=== PATIENT | male | born 1950 | race Caucasian/White ===

== ENCOUNTER → 2019-09-02 13:56 | Outpatient (BNVA) | payer MEDICARE, MEDICAID, SELFPAY | PROVIDERS: Visit Provider Urology | DX: N39.0 Urinary tract infection, site not specified (principal); R31.0 Gross hematuria | CPT/HCPCS: 81001; 84153; 87077; 87086; 87186; 88112 ==

== ENCOUNTER → 2019-09-06 11:51 | Outpatient (BNVA) | payer MEDICARE, MEDICAID, SELFPAY | PROVIDERS: Visit Provider Urology | DX: N39.0 Urinary tract infection, site not specified (principal); K92.1 Melena; R31.0 Gross hematuria | CPT/HCPCS: 88112 ==

== ENCOUNTER 2019-09-07 08:08 | Day surgery (SDC) | payer MEDICARE, MEDICAID, SELFPAY ==
[2019-09-06 08:33] VITALS: BMI 22.3
--- NOTE | 2019-09-07 08:28 | P.ANESASSM_ITS ---
Pre-Anesthetic Assessment Pre-Anesthetic Assessment: Height/Weight: Height 1.8 m Weight 72.575 kg Preop Diagnosis: Blood in the Stool Proposed Procedure: Operation Date: 09/07/19 08:30 Proposed Procedures p Colonoscopy 49599 K92.1(Not Applicable) - Shabbir Viveros MD Last Intake: 21:00 Social: Social History: Tobacco Packs per day: 1/4 Pack years: 12 Comment: quit 10 years ago Exam: Pre-Anes Outpt Exam: alert, oriented x 3, clear to auscultation bilaterally and regular rate & rhythm Airway: Submandibular: WNL Cervical ROM: WNL MP: 1 Additional comments: very poor : : UTI Comments: hx hematuria GI: Comments: blood in stool Anesthetic Plan: ASA status: II Anesthesia: MAC PFSH Anesthesia PFSH: Social History Smoking and tobacco status: former smoker Quit status (tobacco): has quit using tobacco Year quit tobacco: 10 years ago Second hand smoke exposure: No Alcohol intake: never Desire information about substance/drug rehabilitation?: No Adopted: No Caregiver/support person: Yes Lives independently: Yes Household members: family Housing: House Marital status: Single Highest education level completed: High School Graduate service: No Current occupational status: retired Current occupational exposures/hazards: No Pets and animals: No History of recent travel: No Sexually active: No Current gender identity: Male Myriam/Cheondoism: None Special myriam needs: No Agree to transfusion: No Financial difficulty paying for basics: Decline to Answer Data Anesthesia Cardiac Studies: No Data to Display
[2019-09-07] MEDS: sodium chloride 0.9% 1,000 ML 30 ML (09:04)
[2019-09-07 09:05] VITALS: BP 168/87; PULSE 97; RESP 18; TEMP 36.1; O2SAT 97
--- NOTE | 2019-09-07 09:48 | PM.HPUD ---
H&P update H&P Update: DATE OF SURGERY/PROCEDURE: 09/07/19 DATE H&P PERFORMED: 08/25/19 H&P UPDATE INFORMATION: H&P completed within last 30 days and No changes to prior documentation PREOP DIAGNOSIS: blood in stool PLANNED PROCEDURE: Operation Date: 09/07/19 08:30 Proposed Procedures p Colonoscopy 64760 K92.1(Not Applicable) - Shabbir Viveros MD Full H&P Perinent History: Medical/Surgical History: Medical History (Updated 09/02/19 @ 10:32 by Bernaedtte Quinonez APRN) Elbow fracture, right (Acute) History of blood in urine (Acute ~07/2019) History of recurrent UTIs (Acute) Occult blood in stools (Acute) Family History: Family History (Updated 08/25/19 @ 09:41 by Trini Kebede RN) Father Alzheimer disease Denies family history of Anesthesia complication Bleeding disorder Social History: Social History Smoking and tobacco status: former smoker Quit status (tobacco): has quit using tobacco Year quit tobacco: 10 years ago Second hand smoke exposure: No Alcohol intake: never Desire information about substance/drug rehabilitation?: No Adopted: No Caregiver/support person: Yes Lives independently: Yes Household members: family Housing: House Marital status: Single Highest education level completed: High School Graduate service: No Current occupational status: retired Current occupational exposures/hazards: No Pets and animals: No History of recent travel: No Sexually active: No Current gender identity: Male Myriam/Christian: None Special myriam needs: No Agree to transfusion: No Financial difficulty paying for basics: Decline to Answer
[2019-09-07 10:25] VITALS: BP 108/77; PULSE 72; RESP 16; TEMP 36.2; O2SAT 99
--- NOTE | 2019-09-07 10:33 | ANE.PACU2 ---
 Inpatient post-anesthesia follow up: Airway intact: Yes Vital signs: Temperature 97.1 F Pulse Rate 72 Respiratory Rate 16 Blood Pressure 108/77 Pulse Oximetry 99 Oxygen Delivery Me thod Nasal Cannula Oxygen Flow Rate 3.0 Fraction of Inspir ed Oxygen Hydration adequate: Yes Nausea and vomiting: No Pain level: 1 Mental status: Baseline
[2019-09-07 10:41] VITALS: BP 137/88; PULSE 70; RESP 18; O2SAT 97
== END 2019-09-07 10:55 | disposition home or self-care (01) ==
PROVIDERS: Visit Provider Surgery
PROC: 0DJD8ZZ Inspection of Lower Intestinal Tract, Via Natural or Artificial Opening Endoscopic (ICD-10-PCS; CPT 45378; principal; 2019-09-07 08:30)
DX: K92.1 Melena (principal); D12.8 Benign neoplasm of rectum; Z87.891 Personal history of nicotine dependence
CPT/HCPCS: 12345; 45385; 88305; J2704; J7030

== ENCOUNTER 2019-10-04 07:18 | Outpatient (CLI) | payer MEDICARE, MEDICAID, SELFPAY ==
[2019-10-04 08:00] LABS: Blood Urea Nitrogen 14 mg/dL (8-23); Glomerular Filtration Rate 84.4 mL/min (90-130)
[2019-10-04] MEDS: iohexol 300 mg/mL 100 mL Btl IV (08:30)
--- NOTE | 2019-10-04 09:30 | CT_ITS ---
WS: [id number] CT scan of the abdomen and pelvis with and without IV contrast. Additional two-dimensional coronal an d sagittal reconstruction was performed. 10/04/2019 Clinical Data: Gross Hematuria Comparison: None. DLP: 1324.[address] scans at [facility] use at least one of these dose optimization techniques: automat ed exposure control; mA and/or kV adjustment per patient size (includes targeted exams where dose is matched to clinical indication); or iterative reconstruction. Findings: The lower lungs show no nodules, masses or effusions. The liver, gallbladder, spleen, adrenal glands and pancreas are normal. The noncontrast imaging of th e kidney shows no renal calculi. The kidneys show equal bilateral contrast excretion with no cyst, ma sses or hydronephrosis. Delayed imaging demonstrates that the ureters are normal in size with no uret eral calculi. The abdominal aorta is normal in size with calcification in the wall. No appendicitis or diverticulitis is seen. The stomach, small bowel and colon show only a large amoun t of fecal material in the colon. There are sigmoid diverticula. The bladder is unremarkable. The seminal vesicles are calcified. There is calcification in the center of the enlarged prostate. No inguinal hernia is seen. 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 CT/CT abdomen pelvis wo/w [id number] Impression: 1. Negative for renal or ureteral abnormalities. 2. Negative for acute intra-abdominal or pelvic abnormalities.
== END 2019-10-04 07:19 | disposition home or self-care (01) ==
LOC: RAD 07:23
PROVIDERS: Visit Provider Urology
DX: R31.0 Gross hematuria (principal)
CPT/HCPCS: 36415; 74178; 81001; 82565; 84520

== ENCOUNTER 2022-04-06 10:12 | Emergency (ER) | payer MEDICARE, MEDICAID, SELFPAY ==
[2022-04-06 10:17] VITALS: BP 159/89; PULSE 95; RESP 18; TEMP 36.2; O2SAT 98; BMI 19.6
--- NOTE | 2022-04-06 11:04 | CTR_ITS ---
PROCEDURE INFORMATION: Exam: CT Head Without Contrast Exam date and time: 04/06/2022 2:00 PM Age: 71 years old Clinical indication: Visual disturbance; Additional info: R eye vision loss, woke up with symptoms TECHNIQUE: Imaging protocol: Computed tomography of the head without contrast. Axial, coronal and sagittal reformatted images were created and reviewed. Radiation optimization: All CT scans at this facility use at least one of these dose optimization techniques: automated exposure control; mA and/or kV adjustment per patient size (includes targeted exams where dose is matched to clinical indication); or iterative reconstruction. COMPARISON: No relevant prior studies available. RADIATION DOSE METRICS: Total DLP (mGy-cm): 1043.66 FINDINGS: Brain: Patchy areas of hypoattenuation in the periventricular and subcortical white matter, consistent with chronic small vessel ischemic disease. No CT evidence of acute intracranial hemorrhage or acute territorial infarction. No significant mass effect or midline shift. Basal cisterns patent. Cerebral ventricles: Prominence of the cortical sulci, cisterns and ventricular system, consistent with cerebral and cerebellar volume loss. Paranasal sinuses: Mild ethmoid mucosal thickening. No fluid levels. Mastoid air cells: Grossly unremarkable. Bones/joints: No acute osseous abnormality. Soft tissues: Grossly unremarkable. Vasculature: Calcific atherosclerotic disease in the cavernous internal carotid arteries. CT/CT head wo con* [id number]: 1[address] No CT evidence of acute intracranial pathology. 2. Additional findings, as above.
--- NOTE | 2022-04-06 15:03 | ED_ITS ---
HPI - Eye Problem General: Chief complaint: Eye Problems Stated complaint: vison not good Time Seen by Provider: 04/06/22 14:16 History of Present Illness: 71-year-old male presenting today with eye problems. Patient notes that he has blurry vision in his right eye. This has been present since at least this morning. No pain with this. He notes a global blurriness. Patient notes that he does have prescription eyeglasses. Has not followed up with his clinical investigator in over 5 years. He will often use his brothers prescriptions. Instead of following up. He denies trauma to the area. He notes that his left eye appears to be working normally. Review of Systems General: Reports: 10 or more systems reviewed and unremarkable except in HPI and below PFSH ED PFSH: Medical History (Updated 04/06/22 @ 15:47 by Joce eRyes DO) Elbow fracture, right History of blood in urine (~07/2019) History of recurrent UTIs Occult blood in stools Surgical History History of colonoscopy (~09/2019) Family History Father Alzheimer disease Denies family history of Anesthesia complication Bleeding disorder Social History Smoking and tobacco status: former smoker Quit status (tobacco): has quit using tobacco Year quit tobacco: 10 years ago Second hand smoke exposure: No Alcohol intake: never Desire information about substance/drug rehabilitation?: No Adopted: No Caregiver/support person: Yes Lives independently: Yes Household members: family Housing: House Marital status: Single Highest education level completed: High School Graduate service: No Current occupational status: retired Current occupational exposures/hazards: No Pets and animals: No History of recent travel: No Sexually active: No Current gender identity: Male Myriam/Restorationist: None Special myriam needs: No Agree to transfusion: No Financial difficulty paying for basics: Decline to Answer Physical Exam Const: COMMON NORMALS: no acute distress, patient oriented x3 and alert GENERAL APPEARANCE: cooperative ORIENTATION/CONSCIOUSNESS: Yes awake, Yes oriented to person, Yes oriented to place and Yes oriented to time HENMT: COMMON NORMALS: normocephalic, atraumatic, external ears normal, Normal external nose present and moist oral mucous membranes HEAD & SCALP: normal to inspection, normocephalic and atraumatic NOSE: Normal external nose present GENERAL EAR: hearing grossly impaired EXTERNAL EAR: Yes external ears normal Eye: COMMON NORMALS: Equal, round and reactive pupils present, EOMs intact bilaterally, conjunctivae normal and no scleral icterus GENERAL EYE: appearance normal, both eyes and all related structures EYELID: eyelids normal CONJUNCTIVA: Yes conjunctivae normal SCLERA: sclerae normal PUPIL: Yes Equal, round and reactive pupils present Neck/C-Spine: COMMON NORMALS: full ROM, supple and no JVD GENERAL: Yes normal visual inspection Lymph: LYMPHATIC: no lymphadenopathy noted and no lymphedema noted Chest: COMMONS NORMALS: normal inspection of the chest Resp: COMMON NORMALS: normal respiratory effort, No retractions and No use of accessory muscles Cardio: COMMON NORMALS: no JVD, regular rate and regular rhythm RATE: regular rate RHYTHM: regular rhythm GI: COMMON NORMALS: Normal to inspection, nondistended, normoactive bowel sounds present : COMMON NORMALS: Yes no CVA tenderness BLADDER/KIDNEY EXAM: Yes no CVA tenderness Back/Pelvis: COMMON NORMALS: no CVA tenderness and thoracic and lumbar spine normal to inspection Extremity: COMMON NORMALS: normal to inspection, full ROM and capillary refill normal GENERAL: Yes normal exam except as noted Neuro: COMMON NORMALS: patient oriented x3, CN's II-XII intact bilaterally, moves all extremities, no focal motor deficits, no sensory deficits noted and gait normal SENSORIUM/ORIENTATION: Yes alert, Yes oriented to person, Yes oriented to place and Yes oriented to time Psych: COMMON NORMALS: mental status grossly normal, Normal thought process present, cooperative and normal affect THOUGHT PROCESS: Normal thought process present Skin: COMMON NORMALS: no rashes or lesions noted and no wounds GENERAL SKIN EXAM: no rashes or lesions noted Course Vital Signs: Vital signs: Vital Signs Temperature 97.1 F L 04/06/22 10:17 Pulse Rate 95 04/06/22 10:17 Respiratory Rate 18 04/06/22 10:17 Blood Pressure 159/89 04/06/22 10:17 Pulse Oximetry 98 04/06/22 10:17 Oxygen Delivery Me thod 04/06/22 10:17 MDM - Eye Problem Medical Decision Making 71-year-old male presenting today with right eye blurriness. Bedside ultrasound without evidence of retinal detachment. Visual acuity is decreased in the right eye. He notes only able to see light on the Snellen chart. But can see fingers at close range. Intraocular pressure of 15. Low suspicion for glaucoma as a source. CT head without evidence of acute ischemic injury. Will refer on to outpatient ophthalmology for further evaluation. Stat referral placed for follow-up on Thursday. Patient was given strict return precautions and recommended routine outpatient follow-up. Lab Data Radiology Impressions Head CT 04/06/22 11:04 IMPRESSION: 1. No CT evidence of acute intracranial pathology. 2. Additional findings, as above. Discharge Plan Discharge Patient Disposition: Home Clinical Impression: Loss, vision, sudden Condition: Stable Prescriptions: No Action sulfamethoxazole-trimethoprim 800-160 mg tablet 1 tab PO BID Qty: 60 2RF Discharge Orders: Discharge ED (Routine); Ordered 04/06/22 Ordered By: Joce Reyes Referrals: Gael Davis MD [Physician] - 1-3 days Patient Instructions: Blurred Vision (ED) Coding Level of Care Code ED Roads Superintendent for Chg Fwd Exam Comprehensive
[2022-04-06] MEDS: tetracaine 0.5% Op Soln 4 mL Btl 1 DROP EYE-RIGHT (15:25)
--- NOTE | 2022-04-10 18:12 | DCPLANNER ---
Addendum entered by Mary Macias 04/17/22 11:31: Patient had a follow up appointment scheduled with Dr. Davis - patient did attend appointment. Original Note: statistics manager had message to schedule a follow up appointment for patient with ophthalmology. statistics manager sent patients information to the office of Dr. Davis. Clinic will review patients information, and will call patient with appointment information.
== END 2022-04-06 16:31 | disposition home or self-care (01) ==
PROVIDERS: Emergency Provider Emergency Medicine
DX: H53.131 Sudden visual loss, right eye (principal); Z87.891 Personal history of nicotine dependence
CPT/HCPCS: 70450; 99284